=== PATIENT | male | born 1980 | race Caucasian/White ===

== ENCOUNTER → 2020-12-15 | Emergency (ER) | payer OTHER ==
[~2020-12-15] VITALS: Ht 170.2 cm; Wt 109.0 kg
[~2020-12-15] MED LIST: ASPIRIN CHEWABLE 81 MG TABLET. PO ONE
--- NOTE | 2020-12-15 19:15 | PHYS DOC ---
Past History Past Medical History: Diabetes, Hypertension Adult General Chief Complaint Chief Complaint: CHEST PAIN HPI HPI Patient is a 40-year-old male presenting via [employer] for chest pain. Onset was 1 hour prior to arrival, states it might have been an anxiety attack but is unsure. Reports left-sided chest pain that did not radiate. Nothing known made better or worse. Pain described as pressure that was 8/10 severity and improved without any intervention after 45 minutes but ongoing presents concerned him enough to contact nurse who subsequently transferred patient to our facility for evaluation. He has no cardiac history but does have history of obesity, hypertension and ich-zbekbek-plwqjthsk diabetes. No significant family medical history. No tobacco, alcohol or illicit drug use Review of Systems Review of Systems Fourteen body systems of review of systems have been reviewed. See HPI for pertinent positives and negative responses, other garcia all other systems are negative, non-pertinent or non-contributory Physical Exam Physical Exam Constitutional: Well developed, well nourished, no acute distress, non-toxic appearance. HENT: Normocephalic, atraumatic, bilateral external ears normal, oropharynx moist, no oral exudates, nose normal. Eyes: PERRLA, EOMI, conjunctiva normal, no discharge. Neck: Normal range of motion, no tenderness, supple, no stridor. Cardiovascular: Heart rate regular, sinus rhythm, no murmurs rubs or gallops Lungs & Thorax: Bilateral breath sounds clear to auscultation Abdomen: Bowel sounds normal, soft, no tenderness, no masses, no pulsatile masses. Nonsurgical abdomen, no peritoneal signs Skin: Warm, dry, no erythema, no rash. Back: No tenderness, no CVA tenderness. Extremities: No tenderness, no cyanosis, no clubbing, ROM intact, no edema. Neurologic: Alert and oriented X 3, grossly normal motor & sensory function, no focal deficits noted. Psychologic: Anxious affect and mood Current Patient Data Vital Signs Vital Signs Date Time Temp Pulse Resp B/P (MAP) Pulse Ox O2 Delivery O2 Flow Rate FiO2 12/15/20 19:12 97.6 105 20 146/89 (108) 98 Room Air Vital Signs Date Time Temp Pulse Resp B/P (MAP) Pulse Ox O2 Delivery O2 Flow Rate FiO2 12/15/20 19:12 97.6 105 20 146/89 (108) 98 Room Air Lab Results Current Medications Medications (Trade) Dose Ordered Sig/Hermes Route PRN Reason Start Time Stop Time Status Last Admin Dose Admin Aspirin (Aspirin Chewable) 162 mg 1X ONCE PO 12/15/20 19:30 12/15/20 19:31 UNV EKG EKG EKG ordered and interpreted by myself at 1956 hrs. as sinus tachycardia with a rate of 105 bpm, unremarkable intervals, no axis deviation, no acute ischemic findings, no STEMI Radiology/Procedures Radiology/Procedures XR CHEST 1V Clinical Indication: Reason: CHEST PAIN / Spl. Instructions: / History: Comparison: None. Findings: The cardiomediastinal silhouette is normal. Lungs are clear. There is no pneumothorax. No pleural effusion is appreciated. No acute bone abnormality. IMPRESSION: No acute cardiopulmonary process. Electronically signed by: Darryl Ferreira MD (12/15/2020 8:39 PM) [facility] Heart Score C/O Chest Pain: Yes HEART Score for Chest Pain: HEART Score for Chest Pain Response (Comments) Value History Slighlty/Non-Suspicious 0 ECG Normal 0 Age < 45 0 Risk Factors >3 Risk Factors or Hx CAD 2 Troponin < Normal Limit 0 Total 2 Risk Factors: Risk Factors: DM, Current or recent (<one month) smoker, HTN, HLP, family history of CAD, obesity. Risk Scores: Risk Factors: DM, Current or recent (<one month) smoker, HTN, HLP, family history of CAD, obesity. Course & Med Decision Making Course & Med Decision Making Tachycardic on arrival which is normal per patient otherwise hemodynamically stable. HPI more consistent with anxiety/panic attack versus other more concerning diagnoses such as cardiac etiology chest pain but patient does have burst factors. Physical exam and comprehensive work-up nonconcerning for emergent or surgical findings. 162 mg aspirin administered on arrival. Subsequent 0.5 mg IV Ativan administered with total improvement of symptoms I reviewed entirety of ER work-up with patient at length, reviewed most likely diagnosis of anxiety/panic attack. Discussed low likelihood of cardiac etiology chest pain, reviewed heart score. I did disclose this might be other concerning diagnoses such as pulmonary embolism, I reviewed elevated heart rate otherwise he was PERC negative. Discussed utility of ordering D-dimer but given that patient was at baseline health and asymptomatic, patient deferred Discussed need for close outpatient primary care follow-up and provocative cardiac testing is indicated. Strict return precautions were discussed with good understanding by patient, all questions and concerns addressed prior to ER departure Joey Disclaimer Joey Disclaimer This electronic medical record was generated, in whole or in part, using a voice recognition dictation system. Departure Departure: Impression: Primary Impression: Chest pain, unspecified Disposition: HOME / SELF CARE / HOMELESS Condition: STABLE Patient Instructions: Chest Pain (Nonspecific) Additional Instructions: You were seen for chest pain. Your workup did not show any acute abnormalities today, but does not indicate that you do not have underlying cardiovascular disease. As discussed, this might be an acute presentation of a more concerning disease process and so, you do need to follow up with your primary doctor and/or resume writer for further evaluation. You should return to the ED if you develop worsening chest pain, shortness of breath, fever, abnormal sweating, leg swelling, or any other new or concerning symptoms. It was a pleasure to take care of you and I wish you the best going forward CLAUDIA PORTER DO December 15, 2020 19:15
[2020-12-15 19:47] LABS: BASO # 0.1 x10^3/uL (0.0-0.2); BASO % 1 % (0-3); EOS # 0.2 x10^3/uL (0.0-0.7); EOS % 2 % (0-3); HEMATOCRIT 39.8 % (39.0-53.0); HEMOGLOBIN 13.2 g/dL (13.0-17.5); LYMPH # 1.7 x10^3/uL (1.0-4.8); LYMPH % 18 % (24-48); MEAN CORPUSCULAR HEMOGLOBIN 26 pg (25-35); MEAN CORPUSCULAR HGB CONC 33 g/dL (31-37); MEAN CORPUSCULAR VOLUME 78 fL (79-100); MONO # 0.7 x10^3/uL (0.0-1.1); MONO % 7 % (0-9); NEUT # 6.7 x10^3uL (1.8-7.7); NEUT % 71 % (31-73); PLATELET COUNT 384 x10^3/uL (140-400); RED BLOOD COUNT 5.09 x10^6/uL (4.30-5.70); RED CELL DISTRIBUTION WIDTH 14.3 % (11.5-14.5); WHITE BLOOD COUNT 9.3 x10^3/uL (4.0-11.0)
[2020-12-15 19:48] LABS: CALCIUM 9.2 mg/dL (8.5-10.1); CREATININE 0.9 mg/dL (0.7-1.3); GFR 94.4; POTASSIUM 4.4 mmol/L (3.5-5.1)
--- NOTE | 2020-12-15 20:42 | RAD ---
XR CHEST 1V Clinical Indication: Reason: CHEST PAIN / Spl. Instructions: / History: Comparison: None. Findings: The cardiomediastinal silhouette is normal. Lungs are clear. There is no pneumothorax. No pleural eff usion is appreciated. No acute bone abnormality. IMPRESSION: No acute cardiopulmonary process. Electronically signed by: Darryl Ferreira MD (12/15/2020 8:39 PM) [facility]
[2020-12-15 20:45] VITALS: BP 136/97
--- NOTE | 2020-12-16 01:49 | EKG ---
[address] [address] Test Date: 2020-12-15 Test Time: 19:46:46 Pat Name: NELL OLMSTEAD Department: Room: Gender: M Community Development Coordinator: ADOLFO : 1980 Requested By: CLAUDIA PORTER Order Number: [id number] Reading MD: Measurements Intervals [place] Rate: 105 P: -22 DE: 148 QRS: 11 QRSD: 74 T: 43 QT: 308 QTc: 411 Interpretive Statements SINUS TACHYCARDIA OTHERWISE NORMAL ECG RI6.02 No previous ECG available for comparison
== END | disposition home or self-care (01) ==
LOC: ER 19:12 → EEVIPCON 19:12
DX: R07.89 Other chest pain (principal); E11.9 Type 2 diabetes mellitus without complications; I10 Essential (primary) hypertension
CPT/HCPCS: 36415; 71045; 80048; 84484; 85025; 93005; 96374; 99285; J2060